=== PATIENT | male | born 1995 | race Caucasian/White ===

== ENCOUNTER 2024-04-21 23:09 | Emergency (ER) | payer BC ==
[~2024-04-21] VITALS: Ht 182.9 cm; Wt 127.0 kg
[2024-04-21 23:44] LABS: BASOPHILS # (AUTO) 0.2 X10'3 (0-0.2); BASOPHILS % (AUTO) 1.1 % (0-1); EOSINOPHILS # (AUTO) 0.2 X10'3 (0-0.9); EOSINOPHILS % (AUTO) 1.3 % (0-6); HEMATOCRIT 43.8 % (42.0-52.0); HEMOGLOBIN 15.4 g/dl (14.0-17.9); LYMPHOCYTES # (AUTO) 4.4 X10'3 (1.1-4.8); LYMPHOCYTES % (AUTO) 32.1 % (21-51); MEAN CORPUSCULAR HEMOGLOBIN 29.8 PG (27.0-31.0); MEAN CORPUSCULAR HGB CONC 35.2 g/dL (33.0-36.5); MEAN CORPUSCULAR VOLUME 84.7 FL (78-98); MEAN PLATELET VOLUME 8.6 FL (7.4-10.4); MONOCYTES # (AUTO) 0.8 X10'3 (0-0.9); MONOCYTES % (AUTO) 6.2 % (2-12); NEUTROPHILS # (AUTO) 8.1 X10'3 (1.8-7.7); NEUTROPHILS % (AUTO) 59.3 % (42-75); PLATELET COUNT 247 X10'3 (140-440); RED BLOOD COUNT 5.18 X10'6 (4.70-6.10); RED CELL DISTRIBUTION WIDTH 13.9 % (11.5-14.5); WHITE BLOOD COUNT 13.7 X10'3 (4.5-11.0)
[2024-04-21 23:59] LABS: ALBUMIN 3.8 G/DL (3.4-5.0); ALKALINE PHOSPHATASE 73 IU/L (46-116); ANION GAP 10 (8-16); BILIRUBIN,TOTAL 0.6 MG/DL (0.1-1.0); BLOOD UREA NITROGEN 13 MG/DL (7-18); BUN/CREATININE RATIO 12.7 (10.0-20.0); CALCIUM 8.5 MG/DL (8.5-10.1); CHLORIDE 103 MMOL/L (99-107); CREATININE 1.02 MG/DL (0.60-1.10); LIPASE 42 U/L (16-77); SODIUM 140 MMOL/L (135-145); TOTAL CARBON DIOXIDE 27.1 MMOL/L (24-32); eCRCL 120 ML/MIN; eGFR 88 ML/MIN
[2024-04-22] MEDS ORDERED: iohexol 350MG/ML 100ml bottle IV ONE (00:22)
[2024-04-22 00:34] LABS: ALBUMIN/GLOBULIN RATIO 1.2 (1.1-1.5)
[2024-04-22 00:52] LABS: ALANINE AMINOTRANSFERASE 79 U/L (12-78); ASPARTATE AMINO TRANSFERASE 47 U/L (10-37); GLUCOSE 133 MG/DL (70-104)
[2024-04-22 00:53] LABS: POTASSIUM 3.8 MMOL/L (3.5-5.1)
[2024-04-22 01:00] VITALS: BP 143/81; PULSE 79; RESP 15; O2SAT 99
[2024-04-22 01:28] LABS: BILIRUBIN,URINE NEGATIVE (Neg); CLARITY,URINE CLEAR (Clear); COLOR,URINE YELLOW (Yellow); GLUCOSE, URINE NEGATIVE (Neg); KETONES,URINE NEGATIVE (Neg); LEUKOCYTE ESTERASE ,URINE NEGATIVE (Neg); NITRITES, URINE NEGATIVE (Neg); OCCULT BLOOD,URINE NEGATIVE (Neg); PH,URINE 6.5 (4.8-8.0); PROTEIN,URINE NEGATIVE (Neg); UROBILINOGEN,URINE 0.2 E.U/dL (0.2-1.0)
[2024-04-22 01:33] LABS: UA COLLECTION TYPE CLN CATCH MIDSTREAM
== END 2024-04-22 01:48 | disposition home or self-care (01) ==
LOC: ER 23:11
DX: N99.821 Postprocedural hemorrhage of a genitourinary system organ or structure following other procedure (principal); K62.5 Hemorrhage of anus and rectum; R10.32 Left lower quadrant pain; Z88.2 Allergy status to sulfonamides
CPT/HCPCS: 36415; 74174; 80053; 81003; 83690; 85025; 99285; Q9967